=== PATIENT | female | born 1975 ===

== ENCOUNTER 2021-07-01 10:21 | Day surgery (SDC) | payer BC ==
[2021-06-29 11:46] LABS: Urine Appearance CLEAR (Clear); Urine Bilirubin NEGATIVE (Negative); Urine Blood NEGATIVE (Negative); Urine Color YELLOW (Yellow); Urine Glucose NEGATIVE (Negative); Urine Protein NEGATIVE (Negative); Urine Specific Gravity <=1.005 (1.005-1.030); Urine Urobilinogen 0.2 mg/dL (0.2-1.0); Urine pH 6.5 (5.0-7.0)
[2021-06-29 11:48] LABS: Urine Microscopic Reflex NO UMIC
[2021-06-29 11:53] LABS: Absolute Lymphocytes (CBC) 2.2 K/uL (0.7-4.9); Basophils % 0.6 % (0-1.3); Hematocrit 42.7 % (36.0-45.0); Lymphocytes % 27.8 % (15.3-44.8); MPV 9.1 fL (7.6-11.3); RBC Red Blood Cell Count 4.62 M/uL (3.86-4.86)
[2021-07-01] MEDS ORDERED: CEFAZOLIN/NS 1gm 1 GM/50 ML BAG ONE (10:31)
[2021-07-01] MEDS ORDERED: Ringers Lactate 1,000 ML IV ONE ×2 (10:31→12:06)
[2021-07-01] MEDS ORDERED: propofoL 200 MG/20 ML VIAL IV ONE (10:44)
[2021-07-01 10:45] LABS: Specific Gravity 1.015 (1.005-1.030)
[2021-07-01] MEDS ORDERED: MIDAZOLAM HCL 2 MG/2 ML INJ ONE (10:45)
[2021-07-01] MEDS ORDERED: FENTANYL CITR 250 MCG/5 ML ONE (10:45)
[2021-07-01] MEDS ORDERED: LIDOCAINE 1% MPF 5 ML VIAL ONE (10:45)
[2021-07-01] MEDS ORDERED: dexAMETHasone 10 MG/ML VIAL ONE (10:45)
[2021-07-01] MEDS ORDERED: NS 0.9% VIAL 10 ML ONE (10:45)
[2021-07-01] MEDS ORDERED: ONDANSETRON 4 MG/2 ML VIAL ONE ×2 (10:46→16:44)
[2021-07-01] MEDS ORDERED: VECURONIUM 10 MG/VIAL IV ONE ×2 (10:46→13:16)
[2021-07-01] MEDS ORDERED: ACETAMINOPHEN 500 MG TAB ONE (11:40)
[2021-07-01] MEDS ORDERED: CELECOXIB 100 MG CAPSULE PO ONE (11:40)
[2021-07-01] MEDS ORDERED: CELECOXIB 100 MG CAPSULE ONE (11:40)
[2021-07-01] MEDS ORDERED: ACETAMINOPHEN 500 MG TAB PO ONE (11:40)
[2021-07-01] MEDS ORDERED: BUPIVACAINE 0.25% PF 10 ML VIAL ONE (12:06)
[2021-07-01] MEDS ORDERED: SCOPOLAMINE HYDROBROMIDE PATCH TD ONE ×2 (13:15→13:21)
[2021-07-01] MEDS ORDERED: LANO/MINERAL OIL/PETRO 3.5 GM ONE (13:16)
[2021-07-01] MEDS ORDERED: CEFAZOLIN SODIUM 1 GM/VIAL ONE (13:59)
[2021-07-01] MEDS ORDERED: KETOROLAC 30 MG/ML INJ ONE (15:16)
[2021-07-01] MEDS ORDERED: GLYCOPYRROLATE 0.2 MG/ML SYR ONE (15:17)
[2021-07-01] MEDS ORDERED: NEOSTIGMINE 1 MG/ML -5 ML ONE (15:52)
[2021-07-01] MEDS ORDERED: FENTANYL CITR 100 MCG/2 ML ONE (15:56)
[2021-07-01] MEDS ORDERED: MEPERIDINE HCL 25 MG/ML SYR IM PRN (16:02)
[2021-07-01] MEDS ORDERED: HYDROCODONE/APAP 5/325 MG TAB PO PRN (16:02)
[2021-07-01] MEDS ORDERED: PROMETHAZINE INJ 25 MG/ML AMP IV PRN (16:02)
--- NOTE | 2021-07-01 16:05 | P.BOP ---
Preoperative diagnosis: AUB-l, dysmenorrhea RLQ pain Postoperative diagnosis: same, endometriosis, bladder adhesions and omentum Primary procedure: TLH BS, endometriosis excision, cystoscopy Spray Gunner: Alexus Posadas Estimated blood loss: min UO 200 LR 1L Specimen: uterus bilat tubes, left USL and post CDS Findings: endoon left USl and post CDS Anesthesia: General Complications: None Transferred to: Recovery Room Condition: Good
[2021-07-01] MEDS: HYDROMORPHONE HCL 1 MG/ML INJ ONE ×3 (16:46→16:51)
[2021-07-01 17:38] VITALS: TEMP 98; O2SAT 100
[2021-07-01] MEDS ORDERED: HYDROCODONE/APAP 5/325 MG TAB ONE (17:51)
[2021-07-01 19:16] VITALS: BP 133/80
--- NOTE | 2021-07-02 09:26 | OP ---
Date of Procedure: 07/01/2021 Surgeon: Callie Pardo MD Production Grader: Alexus Posadas. Preoperative Diagnoses: Abnormal uterine bleeding-leiomyomas, dysmenorrhea, right lower quadrant duke n. Postoperative Diagnoses: Abnormal uterine bleeding-leiomyomas, dysmenorrhea, right lower quadrant pa in, bladder adhesions and omental adhesions. She also has a small anterior abdominal wall hernia, ve ntral hernia at the site of her . Primary Procedures: Total laparoscopic hysterectomy, bilateral salpingectomy, endometriosis excision , cystoscopy, lysis of bladder and omental adhesions. Anesthesia: General endotracheal. Estimated Blood Loss: Minimal. Urine Output: 200. Input: LR 1 L. Findings: Endometriosis on the left uterosacral, posterior cul-de-sac, as well as the left lateral. No other implants were obvious. Specimens: Uterus, the lateral tubes, left uterosacral, posterior cul-de-sac. Complications: No complications Drains: No drains. Condition: The patient's condition is stable. Indications: The patient is a 46-year-old, who presented with dysmenorrhea right lower quadrant pain . Transvaginal ultrasound was performed, which was noted to have some fibroids. Endometrial samplin g showed no atypia or malignancy. The patient started to have right lower quadrant pain since December 10, sudden in onset. This has somehow been improved since the office hysteroscopy, D and C; however, her period has become irregular. Although she denies dyspareunia, she has noted dysmenorrhea. Most ly all this since her teens. Size of the uterus was 6 weeks size, only slightly enlarged. She does not have any further fertility plans. A CT scan has been done from where there was a sub- centimeter fibroid ultrasound with 3.3 mm posterior wall fibroid. On the sampling, no aty zohreh or malignancy, adenomyosis or endometriosis was suspected. The fibroid did not appear to be clas sic leiomyoma. Medical and surgical treatments were reviewed. When the pain came back, it has been debilitating to function. So, the patient was offered a laparoscopic hysterectomy with bilateral eagle pingectomy endometriosis excision bowel prep or ablation with laparoscopy endometriosis excision and bilateral salpingectomy. She preferred to have a hysterectomy for definitive treatment. She underst ood the risks and benefits of the procedure and postprocedure relief. She was consented and brought to the OR. Description Of Procedure: After informed consent was verified, she was taken back to OR, placed in a supine fashion on the operating table. She had 1 section. Notable, she was given 2 g of A ncef. SCDs were placed and started. The patient was placed in supine fashion on the operating table . General anesthesia was given. She was placed in dorsal lithotomy position using Amado stirrups an d the arms tucked by the side. Time-out was done. Positioning was checked. Abdomen, vulva, vagina, and perineum were prepped and draped in a sterile fashion. Fu was placed to drain the bladder. A large VCare was introduced into the uterus and fixed in place for manipulation. This area was then covered. 1 cm infraumbilical incision curvilinear was made. Fascia was incised and tagged with 0 Vicryl sutur es on both sides and peritoneum entered sharply. Nathan introduced and after adequate insufflation, site of entry was checked. Upper abdominal surfaces, no endometriosis or adhesions. Lower abdominal cavity with omental adhesions to the anterior abdominal wall and almost into the hernia. There was significant thick myometrial adhesions to the anterior abdominal wall near the bladder, which looked like a strip of myometrium from the lower segment of the uterus where the section was perfor med. A 10 suprapubic left lower quadrant, 5 were placed. Then, omental adhesions were first taken down. Once the omental adhesion was taken down in the left lower quadrant port, then the hernia sac was harini ntified and carefully taken down, the bladder adhesions and uterine adhesions to the bladder. They w ere taken down in the plane following the peritoneal lining keeping the bladder retroperitoneal anter iorly without getting into the prevesical space. This entire adhesion was taken down. 10 port was placed in the suprapubic area. Then, dissection wa s performed for the rest of the adhesions laterally. The paravesical space was entered. The anterio r vaginal wall was identified here by dissecting carefully. Then on the right side, similar dissecti on was performed after entering the paravesical space. Then the rest of the adhesions were taken sheyla n in a sharp fashion. Once the entire cup was visualized anteriorly, the bladder was able to be push ed down inferiorly with the help of traction and dissection with the LigaSure. Once all the anatomy was restored to the normal, took down the fimbriated end of the tube. Rest of t he tube was taken down. Utero-ovarian ligament, round ligament, broad ligament were all taken down w ith the LigaSure and the vessels were skeletonized. Posteriorly, endometriosis excision was performed by opening up the lateral peritoneum on the left si de between the ureter and the uterosacral ligament. Then once the ureter was dissected laterally, th e implants of the uterosacral were dissected all the way onto the cul-de-sac with sharp dissection as well as the dissection with the LigaSure and this peritoneum was left attached so that I did not get too far into the cul-de-sac before the hysterectomy. Plan was to strip the rest of it after the [place] rine specimen removed. On the opposite side, distal tube taken down, utero-ovarian ligament, round ligament taken down, post erior broad ligament dissected all the way to the vessels the uterosacral with the help of a natural resource specialist. The broad ligament was taken down to skeletonize the vessels. Then vessels were identified. The ves sels were taken down with the help of the bipolar basket tip and the LigaSure. Cardinal ligament was taken down as well with the LigaSure. Similar dissection performed on the opposite side taking the vessel, cardinal ligaments. Then circumferential colpotomy was performed with the help of monopolar hook blade. The specimen was pulled out of the vagina. There was excellent hemostasis. No bleeding at the cuff and the rest of the peritoneum on the left side was stripped and handed out for permanen t pathology. Care was taken not to detach the uterosacral cuff on both sides for support and thorough irrigation and suction were performed. 2-0 Vicryl sutures were placed on each side on e ach end, and then 2-0 V-Loc was used to closed in 2 layers, closing the epithelium, sub-epithelium, a nd the connective tissue layer first, then closing the connective tissue layer on top of the vaginal wall with the V-Loc. After the two-layer closure, there was excellent hemostasis and well apposed cu ff. Thorough irrigation suction was performed. No evidence of electrical, mechanical, or thermal in jury to the ureters. Trocars were left in place and cystoscopy was performed. No evidence of any tr auma to the left or right ureter. They had normal discharge of urine. No evidence of any trauma to the bladder either from all the dissection. The bladder was drained. Vaginal closure was removed. Gloves were changed. After desufflating the abdomen and pulling the trocars under direct vision, Mar qian was injected at both the entry and exit on the fascial incision. Fascia at the umbilicus was c losed with the 0 Vicryl tag sutures tied to each other and the suprapubic simple 0 Vicryl stitch. Al l incisions closed with interrupted 3-0 chromic sutures. Fu was removed. The patient was recover ed from anesthesia. EBL was minimal. Urine output 200. Instrument, needle, and sponge counts were correct at the end of the case. The patient taken to the recovery in a stable condition. SEBASTIAN/DAVID Voice ID: [id number] Report ID: [id number]
== END 2021-07-01 19:18 | disposition home or self-care (01) ==
LOC: OR 10:21
PROVIDERS: ATTEND Obstetrics & Gynecology
PROC: 0UT74ZZ Resection of Bilateral Fallopian Tubes, Percutaneous Endoscopic Approach (ICD-10-PCS; 2021-07-01)
PROC: 0DBW4ZZ Excision of Peritoneum, Percutaneous Endoscopic Approach (ICD-10-PCS; 2021-07-01)
PROC: 0UBF4ZZ Excision of Cul-de-sac, Percutaneous Endoscopic Approach (ICD-10-PCS; 2021-07-01)
PROC: 0UB44ZZ Excision of Uterine Supporting Structure, Percutaneous Endoscopic Approach (ICD-10-PCS; 2021-07-01)
PROC: 0UT94ZZ Resection of Uterus, Percutaneous Endoscopic Approach (ICD-10-PCS; principal; 2021-07-01 12:00)
DX: N93.9 Abnormal uterine and vaginal bleeding, unspecified (principal); D25.9 Leiomyoma of uterus, unspecified; N94.6 Dysmenorrhea, unspecified; R10.31 Right lower quadrant pain; Z20.822 Contact with and (suspected) exposure to COVID-19
CPT/HCPCS: 85025; 36415; 86900; 86850; 81025; 86901; 88305; 88307; 81003; 58571; 58662; U0003; J2704; J2250; J3010 ×2; J1100; J1170; J2710; J0690 ×2; J7120 ×2; J2405 ×2